=== PATIENT | female | born 1985 | race Caucasian/White ===

== ENCOUNTER → 2017-08-11 | Outpatient (CLI) | payer OTHER ==
[~2017-08-11] VITALS: Ht 167.6 cm; Wt 96.4 kg
[2017-08-11 14:54] VITALS: BP 136/75; PULSE 73; Ht 167.6 cm; Wt 96.4 kg
== END | disposition home or self-care (01) ==
LOC: C.NEUR 13:20
PROVIDERS: ATTEND Internal Medicine Pulmonary Disease
DX: Q79.6 Ehlers-Danlos syndromes (principal); G47.11 Idiopathic hypersomnia with long sleep time; G47.19 Other hypersomnia